=== PATIENT | female | born 1980 | race Two or more races ===

== ENCOUNTER 2023-08-11 02:11 | Inpatient (IN) | payer SELFPAY ==
[~2023-08-11] VITALS: Ht 160 cm; Wt 80.8 kg
[~2023-08-11 02:11] MED LIST: FAMO-135 MT; FOLI-43 PO; PHEN50TA PO; SERT20OR PO; XAR15 MT
[2023-08-11] MEDS ORDERED: LORAZEPAM 4MG/ML VIAL IV NR (02:30)
[2023-08-11] MEDS ORDERED: LORAZEPAM 2MG/ML CPJ IV ONE (02:30)
[2023-08-11] MEDS ORDERED: SODIUM CHLORIDE 0.9% 1,000 ML IV ONE (02:30)
[2023-08-11 03:09] LABS: BASOPHILS % 0.7 % (0.0-2.0); EOSINOPHILS % 4.6 % (0.0-5.0); HEMATOCRIT. 37.2 % (36.0-48.0); HEMOGLOBIN. 12.7 g/dL (12.0-16.0); LYMPHOCYTES % 37.2 % (20.0-50.0); MEAN CORPUSCULAR HEMOGLOBIN 29.9 pg (28.0-32.0); MEAN CORPUSCULAR HGB CONC 34.1 g/dL (31.0-37.0); MEAN CORPUSCULAR VOLUME 87.6 fL (81.0-99.0); MEAN PLATELET VOLUME 7.6 fl (7.4-10.4); MONOCYTES % 6.9 % (2.0-8.0); NEUTROPHILS % 50.6 % (40.0-76.0); PLATELET 333 x1000/uL (130-400); RED BLOOD CELL COUNT 4.25 mill/uL (4.2-5.4); RED CELL DISTRIBUTION WIDTH 13.1 % (11.6-14.6); WHITE BLOOD COUNT 9.6 x1000/uL (4.5-11.0)
[2023-08-11 03:20] LABS: ALANINE AMINOTRANSFERASE 15 IU/L (10-49); ALBUMIN 4.5 g/dL (3.2-4.8); ASPARTATE AMINOTRANSFERASE 15 IU/L (<34); BILIRUBIN TOTAL 0.4 mg/dL (0.1-1.0); CALCIUM 8.9 mg/dL (8.7-10.4); CARBON DIOXIDE 22 mEq/L (21-32); CHLORIDE 103 mEq/L (98-107); CREATININE 0.9 mg/dL (0.6-1.0); GLUCOSE 153 mg/dL (70-105); SODIUM 137 mEq/L (136-145); TROPONIN I HIGH SENSITIVITY 11 ng/L (3.0-34); UREA NITROGEN BLOOD 20 mg/dL (9-23)
[2023-08-11 03:25] LABS: HCG SCREEN NEGATIVE
[2023-08-11 03:30] LABS: BG BASE EXCESS -2.9 mmol/L (-2.0-2.0); BG CARBOXYHEMOGLOBIN 0.3 % (0.5-1.5); BG DEOXYHEMOGLOBIN 3.9 % (0.0-5.0); BG FRACTION INSPIRED OXYGEN 21; BG HCO3 ACT 21.8 mmol/L (22.0-26.0); BG METHEMOGLOBIN 0.3 % (0.0-1.5); BG OXYGEN SATURATION 96.1 % (92.0-98.5); BG OXYHEMOGLOBIN 95.5 % (94.0-97.0); BG PCO2 37.7 mmHg (35.0-45.0); BG PO2 85.7 mmHg (75.0-100.0); BG SAMPLE SITE RIGHT BRACHIAL; BG TOTAL HEMOGLOBIN 12.5 g/dL (12.0-18.0); BG VENT MODE ROOM AIR
[2023-08-11 03:58] LABS: LACTIC ACID 3.1 mmol/L (0.4-2.0); POTASSIUM 2.8 mEq/L (3.5-5.1)
[2023-08-11 05:53] LABS: TROPONIN I HIGH SENSITIVITY 67 ng/L (3.0-34)
[2023-08-11] MEDS ORDERED: ASPIRIN 325MG TABLET PO SCH (07:00)
[2023-08-11] MEDS ORDERED: POTASSIUM CHLORIDE 20MEQ/PACKET PO SCH (07:00)
[2023-08-11] MEDS ORDERED: KCL 20MEQ/100ML PREMIX 100 ML IV SCH (07:00)
[2023-08-11] MEDS ORDERED: ENOXAPARIN 60MG/0.6ML SYR SUBCUT ONE (07:15)
[2023-08-11] MEDS ORDERED: DOCUSATE SODIUM 100MG CAPSULE PO PRN (10:00)
[2023-08-11] MEDS ORDERED: ONDANSETRON HCL 4MG/2ML INJ IV PRN (10:00)
[2023-08-11] MEDS ORDERED: GUAIFENESIN 200MG/10ML SUGAR FREE UDC PO PRN (10:00)
[2023-08-11] MEDS ORDERED: CLONIDINE 0.1MG TABLET PO PRN (10:00)
[2023-08-11] MEDS ORDERED: MAGNESIUM/ALUMINUM HYDROXIDE/SIMETHICONE 30ML UDC PO PRN (10:00)
[2023-08-11] MEDS ORDERED: IPRATROPIUM/ALBUTEROL 0.5-3(2.5)MG/3ML NEB HHN PRN (10:00)
[2023-08-11 10:54] LABS: INR 0.9; PROTHROMBIN TIME 10.2 sec (9.6-11.0)
[2023-08-11 11:02] LABS: PHOSPHORUS 2.9 mg/dL (2.5-4.9)
[2023-08-11] MEDS ORDERED: SERT-422 (11:50)
[2023-08-11 12:00] VITALS: BP_SYST 110; BP_SYST 128; BP_DIAS 71; BP_DIAS 78; PULSE 61; PULSE 65; RESP 14; RESP 17; TEMP 98; TEMP 98.1
[2023-08-11] MEDS ORDERED: LEVE10006 PO (12:27)
[2023-08-11] MEDS ORDERED: ZONI100C45 PO (12:27)
[2023-08-11] MEDS: ACETAMINOPHEN 325MG TABLET PO PRN ×2 (13:38→18:09)
[2023-08-11] MEDS ORDERED: MAGNESIUM 2 G PREMIX 50 ML IV SCH (15:00)
[2023-08-11 15:26] LABS: POTASSIUM 3.8 mEq/L (3.5-5.1)
[2023-08-11 15:35] LABS: CREATINE KINASE MB FRACTION 1.5 ng/mL (0.5-3.6)
[2023-08-11 16:00] VITALS: BP 114/67; PULSE 63; RESP 18
[2023-08-11] MEDS ORDERED: ENOXAPARIN 60MG/0.6ML SYR SUBCUT SCH (18:00)
[2023-08-11] MEDS: ENOXAPARIN 80MG/0.8ML SYR SUBCUT SCH (18:09)
[2023-08-11 20:00] VITALS: BP 114/72; PULSE 65; RESP 16; TEMP 98.3
[2023-08-11] MEDS: LEVETIRACETAM 500MG TABLET PO SCH (20:22)
[2023-08-11] MEDS: FAMOTIDINE 20MG TABLET PO SCH (20:23)
[2023-08-11] MEDS: ZONISAMIDE 100MG CAPSULE PO SCH (20:23)
[2023-08-11 22:15] VITALS: BP 103/58; PULSE 64; RESP 18
[2023-08-11 23:00] VITALS: BP 125/76; PULSE 63; RESP 18
[2023-08-12 00:27] LABS: CREATINE KINASE MB FRACTION 1.1 ng/mL (0.5-3.6)
[2023-08-12 00:58] VITALS: BP 107/72; PULSE 53; RESP 13; TEMP 97.9
[2023-08-12 04:00] VITALS: BP 110/70; PULSE 55; RESP 12; TEMP 97.4
[2023-08-12] MEDS: ACETAMINOPHEN 325MG TABLET PO PRN ×2 (05:05→14:09)
[2023-08-12 05:56] LABS: *AMPHETAMINES SCREEN URINE NEGATIVE (NEGATIVE); *BARBITURATES SCREEN URINE NEGATIVE (NEGATIVE); *BENZODIAZEPINES SCREEN URINE NEGATIVE (NEGATIVE); *COCAINE SCREEN URINE NEGATIVE (NEGATIVE); CANNABINOID URINE SCREEN PRESUMPTIVE POSITIVE (NEGATIVE); ECSTASY MDMA SCREEN URINE NEGATIVE (NEGATIVE); METHADONE URINE SCREEN Neg (NEGATIVE); OPIATES URINE SCREEN NEGATIVE (NEGATIVE); PHENCYCLIDINE URINE SCREEN NEGATIVE (NEGATIVE)
[2023-08-12 06:34] LABS: EOSINOPHILS % 6.9 % (0.0-5.0); HEMOGLOBIN. 12.3 g/dL (12.0-16.0); LYMPHOCYTES % 31.6 % (20.0-50.0); MEAN CORPUSCULAR HEMOGLOBIN 30.3 pg (28.0-32.0); MEAN CORPUSCULAR HGB CONC 34.2 g/dL (31.0-37.0); MEAN CORPUSCULAR VOLUME 88.5 fL (81.0-99.0); MEAN PLATELET VOLUME 7.7 fl (7.4-10.4); MONOCYTES % 7.9 % (2.0-8.0); NEUTROPHILS % 52.6 % (40.0-76.0); PLATELET 295 x1000/uL (130-400); RED BLOOD CELL COUNT 4.07 mill/uL (4.2-5.4); RED CELL DISTRIBUTION WIDTH 13.2 % (11.6-14.6); WHITE BLOOD COUNT 4.8 x1000/uL (4.5-11.0)
[2023-08-12 06:51] LABS: ALANINE AMINOTRANSFERASE 10 IU/L (10-49); ALBUMIN 4.1 g/dL (3.2-4.8); ASPARTATE AMINOTRANSFERASE 14 IU/L (<34); BILIRUBIN TOTAL 0.6 mg/dL (0.1-1.0); CARBON DIOXIDE 25 mEq/L (21-32); CHLORIDE 110 mEq/L (98-107); CREATININE 0.8 mg/dL (0.6-1.0); GLUCOSE 84 mg/dL (70-105); PROTEIN TOTAL 6.4 g/dL (6.0-8.3); SODIUM 142 mEq/L (136-145); T4 FREE 0.85 ng/dL (0.89-1.76); THYROID STIMULATING HORMONE 1.29 uIU/mL (0.55-4.78); TROPONIN I HIGH SENSITIVITY 7 ng/L (3.0-34); UREA NITROGEN BLOOD 12 mg/dL (9-23)
[2023-08-12] MEDS: ENOXAPARIN 80MG/0.8ML SYR SUBCUT SCH ×2 (06:55→18:00)
[2023-08-12] MEDS: ASPIRIN 81MG EC TABLET PO SCH (09:00)
[2023-08-12] MEDS: LEVETIRACETAM 500MG TABLET PO SCH ×2 (09:00→20:39)
[2023-08-12] MEDS ORDERED: IOHEXOL-350 100 ML BOTTLE ONE (12:54)
[2023-08-12 15:25] LABS: CLARITY URINE TURBID (CLEAR); COLOR URINE YELLOW (YELLOW); GLUCOSE URINE NEGATIVE (NEGATIVE); KETONES URINE NEGATIVE (NEGATIVE); LEUKOCYTE ESTERASE URINE 3+ (NEGATIVE); NITRITE URINE NEGATIVE (NEGATIVE); OCCULT BLOOD URINE NEGATIVE (NEGATIVE); PROTEIN URINE NEGATIVE (NEGATIVE); SPECIFIC GRAVITY URINE 1.008 (1.005-1.030); UROBILINOGEN URINE 0.2 E.U./dL (0.2-1.0)
[2023-08-12 16:17] LABS: BACTERIA URINE 3+; RBC URINE 0-2 /hpf (0-2); SQUAMOUS EPITHELIAL CELL URINE 1+ /lpf (RARE/1+)
[2023-08-12 16:18] LABS: WBC URINE 15-25 /hpf (0-2)
[2023-08-12 20:00] VITALS: BP 99/51; PULSE 58; RESP 18; TEMP 99.1
[2023-08-12] MEDS: FAMOTIDINE 20MG TABLET PO SCH (20:39)
[2023-08-12] MEDS: ZONISAMIDE 100MG CAPSULE PO SCH (20:39)
[2023-08-12] MEDS: BUTALBITAL/ACETAMINOPHEN/CAFFEINE 50/325/40MG TABLET PO PRN (20:39)
[2023-08-13] VITALS: BP 106/57; PULSE 54; RESP 18; TEMP 97.9
[2023-08-13 04:00] VITALS: BP 97/55; PULSE 54; RESP 20; TEMP 97.9
[2023-08-13] MEDS: ENOXAPARIN 80MG/0.8ML SYR SUBCUT SCH (07:14)
[2023-08-13] MEDS ORDERED: SODIUM CHLORIDE 0.9% 1,000 ML IV SCH (07:30)
[2023-08-13 08:00] VITALS: BP 115/60; PULSE 61; RESP 18; TEMP 97.4
[2023-08-13] MEDS: LEVETIRACETAM 500MG TABLET PO SCH (09:24)
[2023-08-13] MEDS: ASPIRIN 81MG EC TABLET PO SCH (09:24)
[2023-08-13] MEDS: PIPERACILLIN/TAZOBACTAM 3.375 G in DEXTROSE 5% WATER 50 ML IV SCH ×2 (09:25→14:34)
[2023-08-13 12:00] VITALS: BP 111/65; PULSE 66; RESP 18; TEMP 97.5
[2023-08-13 12:40] VITALS: BP 111/65; PULSE 66; TEMP 97.5; O2SAT 99
[2023-08-13] MEDS: BUTALBITAL/ACETAMINOPHEN/CAFFEINE 50/325/40MG TABLET PO PRN (14:34)
[2023-08-13 16:00] VITALS: BP 115/67; PULSE 75; RESP 18; TEMP 97.4
== END 2023-08-13 17:19 | disposition home or self-care (01) | DRG 190 ==
LOC: ER 02:25 → 5EST 07:02 → 5WST 08-12 08:35
PROVIDERS: ADMIT Internal Medicine; ATTEND Internal Medicine
DX: I21.4 Non-ST elevation (NSTEMI) myocardial infarction (principal); G92.8 Other toxic encephalopathy; E87.20 Acidosis, unspecified; G40.909 Epilepsy, unspecified, not intractable, without status epilepticus; E87.6 Hypokalemia; E83.42 Hypomagnesemia; Z20.822 Contact with and (suspected) exposure to COVID-19; R94.4 Abnormal results of kidney function studies; R73.9 Hyperglycemia, unspecified; E78.5 Hyperlipidemia, unspecified; F32.A Depression, unspecified; G43.909 Migraine, unspecified, not intractable, without status migrainosus; Z79.899 Other long term (current) drug therapy; Z86.711 Personal history of pulmonary embolism
CPT/HCPCS: 36415; 36600; 71045; 71275; 80053; 80305; 81003; 82375; 82542; 82550; 82553; 82805; 83036; 83605; 83735; 83880; 84100; 84132; 84439; 84443; 84484; 84703; 85025; 85379; 87426; 87804; 93005; 93306; 93970; 97162; 99291; C9803; J1650; J2060; J2405; J2543; J3475; J3480; J7030; J7060; Q9967

== ENCOUNTER 2023-10-20 13:04 | Emergency (ER) | payer MEDICAID ==
[~2023-10-20] VITALS: Ht 154.9 cm; Wt 91.0 kg
[~2023-10-20 13:04] MED LIST changes: -FAMO-135 MT; -FOLI-43 PO; +LEVE10006 PO; -PHEN50TA PO; +SERT-422; -SERT20OR PO; -XAR15 MT; +ZONI100C45 PO
[2023-10-20 13:12] VITALS: O2SAT 100
[2023-10-20] MEDS ORDERED: LORAZEPAM 1MG TABLET PO ONE (13:30)
[2023-10-20 14:10] LABS: CLARITY URINE TURBID (CLEAR); COLOR URINE YELLOW (YELLOW); GLUCOSE URINE NEGATIVE (NEGATIVE); KETONES URINE NEGATIVE (NEGATIVE); LEUKOCYTE ESTERASE URINE 2+ (NEGATIVE); NITRITE URINE NEGATIVE (NEGATIVE); OCCULT BLOOD URINE NEGATIVE (NEGATIVE); PH URINE 7.5 (4.5-8.0); PROTEIN URINE NEGATIVE (NEGATIVE); SPECIFIC GRAVITY URINE 1.012 (1.005-1.030); UROBILINOGEN URINE 0.2 E.U./dL (0.2-1.0)
[2023-10-20 14:33] LABS: AMORPHOUS SEDIMENT URINE 3+ /lpf; BACTERIA URINE TRACE; RBC URINE 0-2 /hpf (0-2); SQUAMOUS EPITHELIAL CELL URINE 1+ /lpf (RARE/1+); YEAST URINE NONE SEEN
[2023-10-20 14:56] LABS: BASOPHILS % 0.7 % (0.0-2.0); EOSINOPHILS % 2.5 % (0.0-5.0); HEMOGLOBIN. 12.8 g/dL (12.0-16.0); LYMPHOCYTES % 16.4 % (20.0-50.0); MEAN CORPUSCULAR HEMOGLOBIN 29.9 pg (28.0-32.0); MEAN CORPUSCULAR HGB CONC 33.8 g/dL (31.0-37.0); MEAN CORPUSCULAR VOLUME 88.5 fL (81.0-99.0); MEAN PLATELET VOLUME 7.4 fl (7.4-10.4); MONOCYTES % 6.3 % (2.0-8.0); NEUTROPHILS % 74.1 % (40.0-76.0); PLATELET 312 x1000/uL (130-400); RED CELL DISTRIBUTION WIDTH 12.9 % (11.6-14.6); WHITE BLOOD COUNT 8.4 x1000/uL (4.5-11.0)
[2023-10-20 15:11] LABS: ALANINE AMINOTRANSFERASE 11 IU/L (10-49); ALBUMIN 4.5 g/dL (3.2-4.8); ASPARTATE AMINOTRANSFERASE 17 IU/L (<34); BILIRUBIN TOTAL 0.5 mg/dL (0.1-1.0); CALCIUM 9.2 mg/dL (8.7-10.4); CARBON DIOXIDE 25 mEq/L (21-32); CHLORIDE 106 mEq/L (98-107); CREATININE 0.7 mg/dL (0.6-1.0); GLUCOSE 86 mg/dL (70-105); POTASSIUM 3.9 mEq/L (3.5-5.1); PROTEIN TOTAL 6.7 g/dL (6.0-8.3); SODIUM 138 mEq/L (136-145); UREA NITROGEN BLOOD 15 mg/dL (9-23)
[2023-10-20] MEDS: LORAZEPAM 1MG TABLET PO NR (15:30)
[2023-10-20] MEDS ORDERED: ALPR0.25 MT ×2 (15:58→16:13)
[2023-10-20 18:03] VITALS: BP 102/75; PULSE 77; RESP 18; TEMP 97.7
== END 2023-10-20 18:15 | disposition home or self-care (01) ==
LOC: ER 13:04
DX: F41.1 Generalized anxiety disorder (principal)
CPT/HCPCS: 36415; 80053; 81003; 81025; 85025; 99283